=== PATIENT | female | born 1970 | race Caucasian/White ===

== ENCOUNTER 2023-02-25 08:29 | Day surgery (SDC) | payer BC ==
[~2023-02-25 08:29] MED LIST: Lactated Ringers 1,000 ML IV SCH
[2023-02-25] MEDS ORDERED: propofoL 50 ML ONE (09:54)
[2023-02-25] MEDS ORDERED: Lactated Ringers 1,000 ML IV SCH (10:15)
[2023-02-25 11:09] VITALS: BP 117/81; PULSE 80
== END 2023-02-25 11:00 | disposition home or self-care (01) ==
LOC: MW.SDS 08:29
PROVIDERS: ATTEND Surgery
DX: K29.50 Unspecified chronic gastritis without bleeding (principal); F41.9 Anxiety disorder, unspecified; F32.A Depression, unspecified; Z98.84 Bariatric surgery status; Z90.49 Acquired absence of other specified parts of digestive tract; Z79.899 Other long term (current) drug therapy
CPT/HCPCS: 43239; J2704; J7120